=== PATIENT | female | born 1950 | race Caucasian/White ===

== ENCOUNTER 2017-02-18 17:06 | Emergency (ER) | payer MEDICARE ==
[2017-02-18 17:16] VITALS: BP 123/64; PULSE 80; RESP 16; TEMP 98.4; O2SAT 100
--- NOTE | 2017-02-18 17:36 | ED PDOC ---
HPI: Female Pain Time Seen by Provider: 02/18/17 17:19 Chief Complaint (Nursing): Female Genitourinary Chief Complaint (Provider): dysuria History Per: Patient Onset/Duration Of Symptoms: Days (x2) Additional Complaint(s): Yelena Nicholas is a 66 year old female, with a past medical history of hypertension, hyperlipidemia, diabetes, and gastritis, presents to the ED with dysuria, urinary urgency, and urinary frequency x 2 days prior. Patient denies fever, chills, nausea, or vomiting and she denies abdominal and back pain. Patient states has sensation that she needs to urinate but then only urinates a very small amount. PMD: Go Delacruz MD Past Medical History Reviewed: Historical Data, Nursing Documentation, Vital Signs Vital Signs: Last Vital Signs Temp 98.4 F 02/18/17 17:11 Pulse 80 02/18/17 17:11 Resp 16 02/18/17 17:11 BP 123/64 02/18/17 17:11 Pulse Ox 100 02/18/17 17:11 - Medical History PMH: CAD, Diabetes, Gastritis, HTN, Hypercholesterolemia - Surgical History Surgical History: Endoscopy Other surgeries: hysterectomy - Family History Family History: States: No Known Family Hx - Living Arrangements Living Arrangements: With Family - Social History Current smoker - smoking cessation education provided: No Ex-Smoker (has not smoked in the last 12 months): No Alcohol: None Drugs: Denies - Home Medications Home Medications: Ambulatory Orders Medication Instructions Recorded Azithromycin [Zithromax] 1 tab PO DAILY #6 tablet 09/05/15 Promethazine DM [Phenergan DM Oral 5 ml PO Q8 #100 dose 09/05/15 Syrup] Nitrofurantoin Macrocrystals 100 mg PO BID #14 cap 02/18/17 [Macrobid] - Allergies Allergies/Adverse Reactions: Allergies Allergy/AdvReac Type Severity Reaction Status Date / Time No Known Allergies Allergy Verified 02/18/17 17:11 Review of Systems ROS Statement: Except As Marked, All Systems Reviewed And Found Negative Constitutional: Negative for: Fever, Chills, Weakness Cardiovascular: Negative for: Chest Pain Gastrointestinal: Negative for: Nausea, Vomiting, Abdominal Pain Genitourinary Female: Positive for: Dysuria, Frequency, Other (urinary urgency) . Negative for: Incontinence, Hematuria, Vaginal Discharge, Vaginal Bleeding, Pelvic Pain Physical Exam - Reviewed Nursing Documentation Reviewed: Yes Vital Signs Reviewed: Yes - Physical Exam Appears: Positive for: Well, Non-toxic, No Acute Distress Cardiovascular/Chest: Positive for: Regular Rate, Rhythm Respiratory: Positive for: Normal Breath Sounds. Negative for: Respiratory Distress Gastrointestinal/Abdominal: Positive for: Normal Exam, Soft. Negative for: Tenderness, Distended, Guarding, Rebound Back: Positive for: Normal Inspection. Negative for: L CVA Tenderness, R CVA Tenderness, Vertebral Tenderness Neurologic/Psych: Positive for: Alert, Oriented, Gait (steady) - Laboratory Results Urine dip results: Positive for: Leukocyte Esterase (small), Blood (large) - ECG O2 Sat by Pulse Oximetry: 100 (RA) Pulse Ox Interpretation: Normal Medical Decision Making Medical Decision Making: Time: 17:19 Impression: UTI Patient is afebrile, well appearing, non-toxic appearing. Plan: * ED Urine Dipstick (POC) * Urine Culture U dip positive for leuks and blood. Will treat with rx macrobid. Patient was instructed to drink plenty of fluids and take tylenol for pain as needed. Advised PMD follow up in 1-2 days. Scribe Attestation: Documented by Bere Jeronimo, acting as a scribe for Randi Duong PA-C. Provider Scribe Attestation: All medical record entries made by the Scribe were at my direction and personally dictated by me. I have reviewed the chart and agree that the record accurately reflects my personal performance of the history, physical exam, medical decision making, and the department course for this patient. I have also personally directed, reviewed, and agree with the discharge instructions and disposition. Disposition - Clinical Impression Clinical Impression: Urinary tract infection - Patient ED Disposition Is Patient to be Admitted: No Counseled Patient/Family Regarding: Studies Performed, Diagnosis, Need For Followup, Rx Given - Disposition Referrals: Go Delacruz MD [Family Provider] - Disposition: Routine/Home Disposition Time: 18:05 Condition: STABLE Additional Instructions: Drink plenty of water. Tylenol for pain as needed. Take rx meds as directed. Follow up with primary care doctor in 2-3 days. Prescriptions: Nitrofurantoin Macrocrystals [Macrobid] 100 mg PO BID #14 cap Instructions: Urinary Tract Infection in Women (ED) Forms: [employer] (Hebrew) Print Language: PERUVIAN
== END 2017-02-18 18:23 | disposition home or self-care (01) ==
LOC: H.ER 17:06
DX: N39.0 Urinary tract infection, site not specified (principal); E11.9 Type 2 diabetes mellitus without complications; E78.00 Pure hypercholesterolemia, unspecified; I10 Essential (primary) hypertension; I25.10 Atherosclerotic heart disease of native coronary artery without angina pectoris

== ENCOUNTER 2017-05-22 07:36 | Day surgery (SDC) | payer MEDICARE, OTHER ==
[2017-05-22] MEDS ORDERED: Lactated Ringer's 1,000 ML IV ONE (07:57)
[2017-05-22] MEDS ORDERED: Lidocaine 2% Jelly (30 ml) ONE (08:39)
[2017-05-22] MEDS ORDERED: Propofol 10 mg/ml Inj (20 ML) ONE (08:39)
[2017-05-22 09:07] VITALS: TEMP 98
[2017-05-22 09:19] VITALS: BP 114/72; PULSE 74; RESP 12; O2SAT 98
== END 2017-05-22 09:31 | disposition home or self-care (01) ==
LOC: H.ENDO 07:36
PROVIDERS: ATTEND Internal Medicine Gastroenterology
DX: K29.70 Gastritis, unspecified, without bleeding (principal); K44.9 Diaphragmatic hernia without obstruction or gangrene; K25.9 Gastric ulcer, unspecified as acute or chronic, without hemorrhage or perforation; I10 Essential (primary) hypertension; E78.00 Pure hypercholesterolemia, unspecified; K21.9 Gastro-esophageal reflux disease without esophagitis; E11.9 Type 2 diabetes mellitus without complications; R16.0 Hepatomegaly, not elsewhere classified; K59.00 Constipation, unspecified
CPT/HCPCS: 43239; 82948; 88305; 88342; J2704; J7120

== ENCOUNTER 2017-07-21 09:33 | Emergency (ER) | payer MEDICARE, OTHER ==
[2017-07-21 09:42] VITALS: RESP 16; TEMP 97.6; BMI 27.1
[2017-07-21] MEDS ORDERED: Albuterol-Ipratrop 3 mg / 0.5 (3 ml) UD INH STA (10:09)
[2017-07-21] MEDS ORDERED: Promethazine/Cod 6.25mg-10mg/5ml Syr UD PO STA (10:09)
[2017-07-21] MEDS ORDERED: Promethazine/Cod 6.25mg-10mg/5ml Syr UD ONE (10:31)
[2017-07-21] MEDS ORDERED: Albuterol-Ipratrop 3 mg / 0.5 (3 ml) UD ONE (10:31)
--- NOTE | 2017-07-21 10:35 | RAD ---
HISTORY: fever cough chest pain COMPARISON: 09/05/2015 TECHNIQUE: Chest PA and lateral FINDINGS: LUNGS: No active pulmonary disease. Stable minor interstitial change is noted. Trachea is midline. Aorta is stable in size. PLEURA: No significant pleural effusion identified. No pneumothorax apparent. CARDIOVASCULAR: Normal. OSSEOUS STRUCTURES: Unchanged. VISUALIZED UPPER ABDOMEN: Normal. OTHER FINDINGS: None. IMPRESSION: No active disease.
[2017-07-21 10:44] LABS: EOS # 0.1 K/uL (0.0-0.7); EOS % 1.9 % (0.0-4.0); HEMOGLOBIN 13.6 g/dL (12.0-16.0); LYMPH # 1.3 K/uL (1.0-4.3); MEAN CELL VOLUME 86.4 fl (81.0-99.0); MEAN CORPUSCULAR HEMOGLOBIN 28.5 pg (27.0-31.0); MEAN CORPUSCULAR HGB CONC 32.9 g/dL (33.0-37.0); MEAN PLATELET VOLUME 10.3 fl (7.2-11.7); MONO # 0.7 K/uL (0.0-0.8); MONO % 17.8 % (0.0-10.0); NEUT % 47.3 % (50.0-75.0); NRBC % 0.1 % (0.0-0.0); RBC 4.78 Mil/uL (3.80-5.20); RED CELL DISTRIBUTION WIDTH 13.8 % (11.5-14.5); WHITE BLOOD COUNT 4.2 K/uL (4.8-10.8)
[2017-07-21 10:48] LABS: BLOOD UREA NITROGEN 18 mg/dl (7-17); CALCIUM 9.1 mg/dL (8.4-10.2); GFR AFRICAN-AMERICAN > 60; GFR NON-AFRICAN AMERICAN > 60
[2017-07-21] MEDS ORDERED: Potassium Chloride 20 mEq ER Tab PO ONE ×2 (11:17→13:07)
--- NOTE | 2017-07-21 12:24 | ED PDOC ---
HPI: CCC, URI, Sore Throat Time Seen by Provider: 07/21/17 09:45 Chief Complaint (Nursing): Cough, Cold, Congestion Chief Complaint (Provider): Cough, Congestion, Fever, Body Aches History Per: Patient History/Exam Limitations: no limitations Onset/Duration Of Symptoms: Days (x6) Location Of Pain: Throat, Headache Sick Contacts (Context): None Associated Symptoms: denies: Vomiting, Diarrhea Ear Symptoms: Bilateral: None Additional Complaint(s): 66 year old female with a past medical history of hypertension diabetes presents to the ED complaining of cough, congestion, fever, headache and body aches x6 days. The patient states that her cough is dry associated with chest pain and her fever is intermittent. She also reports that she has nasal congestion associated with sore throat. Patient also states that she has chest congestion and at time she has difficulty breathing. Denies vomiting, diarrhea, abdominal pain, back pain, urinary symptoms. PMD: Dr. Marin Past Medical History Reviewed: Historical Data, Nursing Documentation, Vital Signs Vital Signs: Last Vital Signs Temp 97.6 F 07/21/17 09:40 Pulse 84 07/21/17 13:10 Resp 16 07/21/17 13:10 BP 123/60 07/21/17 13:10 Pulse Ox 99 07/21/17 13:10 - Medical History PMH: CAD, CHF, Diabetes, Gastritis, HTN, Hypercholesterolemia - Surgical History Surgical History: Endoscopy Other surgeries: hysterectomy and breast lumpectomy - Family History Family History: States: Unknown Family Hx - Social History Current smoker - smoking cessation education provided: No Ex-Smoker (has not smoked in the last 12 months): No Alcohol: None - Home Medications Home Medications: Ambulatory Orders Medication Instructions Recorded Losartan/Hydrochlorothiazide 1 tab PO DAILY 05/22/17 [Losartan-Hctz 50-12.5 mg Tab] Lovastatin [Altoprev] 1 tab PO DAILY 05/22/17 metFORMIN [glucOPHAGE] 1 tab PO DAILY 05/22/17 Albuterol HFA [Ventolin HFA 90 2 puff IH [id number] #1 inh 07/21/17 mcg/actuation (8 g)] Promethazine/Codeine 5 ml PO Q6 PRN #100 ml 07/21/17 [Phenergan/Codeine Oral Syrup] - Allergies Allergies/Adverse Reactions: Allergies Allergy/AdvReac Type Severity Reaction Status Date / Time aspirin AdvReac VOMITING Verified 07/21/17 09:53 Review of Systems ROS Statement: Except As Marked, All Systems Reviewed And Found Negative Constitutional: Positive for: Fever, Malaise, Other (body aches; fatigue) ENT: Positive for: Nose Congestion, Throat Pain Cardiovascular: Positive for: Chest Pain (w/ coughing), Other (chest congestion) Respiratory: Positive for: Cough Gastrointestinal: Negative for: Vomiting, Abdominal Pain, Diarrhea Musculoskeletal: Negative for: Back Pain Neurological: Positive for: Headache Physical Exam - Reviewed Nursing Documentation Reviewed: Yes Vital Signs Reviewed: Yes - Physical Exam Appears: Positive for: Non-toxic, No Acute Distress Head Exam: Positive for: ATRAUMATIC, NORMAL INSPECTION, NORMOCEPHALIC Skin: Positive for: Normal Color, Warm, Dry. Negative for: Rash Eye Exam: Positive for: Normal appearance, EOMI, PERRL. Negative for: Nystagmus ENT: Positive for: Normal ENT Inspection. Negative for: Nasal Congestion, Pharyngeal Erythema, Tonsillar Exudate, Tonsillar Swelling Neck: Positive for: Normal, Painless ROM, Supple Cardiovascular/Chest: Positive for: Regular Rate, Rhythm, Chest Non Tender. Negative for: Tachycardia Respiratory: Positive for: Normal Breath Sounds. Negative for: Rales, Rhonchi, Wheezing, Respiratory Distress Gastrointestinal/Abdominal: Positive for: Normal Exam, Bowel Sounds, Soft. Negative for: Tenderness, Mass, Guarding, Rebound Back: Positive for: Normal Inspection. Negative for: L CVA Tenderness, R CVA Tenderness Extremity: Positive for: Normal ROM. Negative for: Tenderness, Deformity, Swelling Lymphatic: Positive for: Normal Exam. Negative for: Adenopathy Neurologic/Psych: Positive for: Alert, Oriented, Gait - Laboratory Results Result Diagrams: 07/21/17 10:25 07/21/17 10:25 - ECG O2 Sat by Pulse Oximetry: 100 (RA) Pulse Ox Interpretation: Normal Medical Decision Making Medical Decision Makin Initial Impression 66 y/o female presenting with URI with tonsillitis Differential: Pnuemonia Initial Plan: * BMP * Udip * CBC * NS 1000 ml IV 1000 mls/hr * Toradol 15mg IVP * Zofran 4mg IV * Influenza A B * Reevaluation Documented by Nika Lozano acting as a scribe for Sergio Glaser MD. All medical record entries made by the Scribe were at my direction and personally dictated by me. I have reviewed the chart and agree that the record accurately reflects my personal performance of the history, physical exam, medical decision making, and the department course for this patient. I have also personally directed, reviewed, and agree with the discharge instructions and disposition. Disposition - Clinical Impression Clinical Impression: Bronchitis, URI, acute - Patient ED Disposition Is Patient to be Admitted: No Doctor Will See Patient In The: Office Counseled Patient/Family Regarding: Studies Performed, Diagnosis, Need For Followup - Disposition Referrals: Go Delacruz MD [Staff Provider] - Disposition: Routine/Home Disposition Time: 13:00 Condition: GOOD Additional Instructions: Take tylenol or advil for pain and fever. Follow up with your PCP in 2-3 days. Prescriptions: Albuterol HFA [Ventolin HFA 90 mcg/actuation (8 g)] 2 puff IH [id number] #1 inh Promethazine/Codeine [Phenergan/Codeine Oral Syrup] 5 ml PO Q6 PRN #100 ml PRN Reason: Cough Instructions: Acute Bronchitis (ED)
[2017-07-21 13:17] VITALS: BP 123/60; PULSE 84
--- NOTE | 2017-07-21 18:14 | CARD ---
APPROVED REPORT EKG Measurement Heart [id number] <Conclusion> Normal sinus rhythm ST & T wave abnormality, consider inferior ischemia Abnormal ECG
[2017-07-21 19:10] VITALS: O2SAT 100
== END 2017-07-21 13:10 | disposition home or self-care (01) ==
LOC: H.ER 09:33
DX: J40 Bronchitis, not specified as acute or chronic (principal); I50.9 Heart failure, unspecified; Z79.84 Long term (current) use of oral hypoglycemic drugs; Z90.710 Acquired absence of both cervix and uterus; E11.9 Type 2 diabetes mellitus without complications; E78.00 Pure hypercholesterolemia, unspecified; I11.0 Hypertensive heart disease with heart failure
CPT/HCPCS: 71046; 80048; 85025; 87040; 87070; 87430; 87804; 93005; 94150; 94640; 96374; 99284; J1885

== ENCOUNTER 2018-01-02 15:53 | Emergency (ER) | payer MEDICARE ==
[2018-01-02 15:56] VITALS: BP 120/70; PULSE 82; RESP 16; TEMP 98.2; O2SAT 98; BMI 26.6
--- NOTE | 2018-01-02 16:39 | ED PDOC ---
HPI: Psych/Substance Abuse Time Seen by Provider: 01/02/18 16:17 Chief Complaint (Nursing): Psychiatric Evaluation Chief Complaint (Provider): depression History Per: Patient History/Exam Limitations: no limitations Onset/Duration Of Symptoms: Gradual ( today) Current Symptoms Are (Timing): Still Present Additional Complaint(s): Nurse practitioner visited patient today as part of her insurance's medical checkup. She reports the ACCESS REGISTRAR asked many questions including about her depression. She denies being suicidal but she says the nurse reports that she is. According to triage the ACCESS REGISTRAR reported to the EMS that the patient admitted that she would want to take all her medicines because she was so depressed. The patient denies this. She denies homicidal ideations. She denies hallucinations. Denies drug or alcohol abuse. She offers no complaints. PMD Dr Delacruz ([facility]) Past Medical History Reviewed: Historical Data, Nursing Documentation, Vital Signs Vital Signs: Last Vital Signs Temp 98.2 F 01/02/18 15:56 Pulse 82 01/02/18 15:56 Resp 16 01/02/18 15:56 BP 120/70 01/02/18 15:56 Pulse Ox 98 01/02/18 15:56 - Medical History PMH: CAD, CHF, Diabetes, Gastritis, HTN, Hypercholesterolemia - Surgical History Surgical History: Endoscopy - Family History Family History: States: No Known Family Hx - Social History Current smoker - smoking cessation education provided: No Alcohol: None Drugs: Denies - Home Medications Home Medications: Ambulatory Orders Medication Instructions Recorded Losartan/Hydrochlorothiazide 1 tab PO DAILY 05/22/17 [Losartan-Hctz 50-12.5 mg Tab] Lovastatin [Altoprev] 1 tab PO DAILY 05/22/17 metFORMIN [glucOPHAGE] 1 tab PO DAILY 05/22/17 Albuterol HFA [Ventolin HFA 90 2 puff IH [id number] #1 inh 07/21/17 mcg/actuation (8 g)] Promethazine/Codeine 5 ml PO Q6 PRN #100 ml 07/21/17 [Phenergan/Codeine Oral Syrup] - Allergies Allergies/Adverse Reactions: Allergies Allergy/AdvReac Type Severity Reaction Status Date / Time aspirin AdvReac VOMITING Verified 07/21/17 09:53 Review of Systems ROS Statement: Except As Marked, All Systems Reviewed And Found Negative (and as per HPI) Psych: Positive for: Depression. Negative for: Psychosis, Suicidal ideation Physical Exam - Reviewed Nursing Documentation Reviewed: Yes Vital Signs Reviewed: Yes - Physical Exam Appears: Positive for: Non-toxic, No Acute Distress (but tearful in ER) Head Exam: Positive for: ATRAUMATIC, NORMOCEPHALIC Skin: Positive for: Warm, Dry Eye Exam: Positive for: EOMI, PERRL ENT: Negative for: Pharyngeal Erythema, Tonsillar Exudate Neck: Positive for: Painless ROM, Supple Cardiovascular/Chest: Positive for: Regular Rate, Rhythm, Chest Non Tender. Negative for: Murmur Respiratory: Positive for: Normal Breath Sounds. Negative for: Respiratory Distress Gastrointestinal/Abdominal: Positive for: Soft. Negative for: Tenderness Back: Positive for: Normal Inspection. Negative for: Decreased ROM Extremity: Positive for: Normal ROM. Negative for: Deformity Lymphatic: Negative for: Adenopathy Neurologic/Psych: Positive for: Alert, Oriented (x3), Mood/Affect (depressed and angre). Negative for: Motor/Sensory Deficits, Aphasia, Facial Droop - ECG O2 Sat by Pulse Oximetry: 98 - Progress ED Course And Treament: Evaluated by ARTHUR Arambula who d/w Dr Coates. Stable for dc with follow up. Disposition - Clinical Impression Clinical Impression: Depression - Disposition Disposition: Routine/Home Disposition Time: 17:21 Condition: GOOD Additional Instructions: FOLLOW UP WITH DR. GEORGE DOS SANTOS [address] [place] [address] Instructions: Depression, Adult (DC) Forms: [employer] (Zambian) Print Language: CZECH
[2018-01-02 17:24] LABS: BARBITURATES, UR NEGATIVE (NEGATIVE); BENZODIAZEPINES, UR NEGATIVE (NEGATIVE); OPIATES, UR NEGATIVE (NEGATIVE); PHENCYCLIDINE, UR NEGATIVE (NEGATIVE)
== END 2018-01-02 18:21 | disposition home or self-care (01) ==
LOC: H.ER 15:53
DX: F32.9 Major depressive disorder, single episode, unspecified (principal); E11.9 Type 2 diabetes mellitus without complications; E78.00 Pure hypercholesterolemia, unspecified; I11.0 Hypertensive heart disease with heart failure; I25.10 Atherosclerotic heart disease of native coronary artery without angina pectoris; I50.9 Heart failure, unspecified; Z79.84 Long term (current) use of oral hypoglycemic drugs
CPT/HCPCS: 82948; 99284; G0480

== ENCOUNTER 2018-10-28 11:28 | Emergency (ER) | payer MEDICARE ==
[2018-10-28 11:28] VITALS: BMI 27.1
--- NOTE | 2018-10-28 12:44 | ED PDOC ---
HPI: Headache Time Seen by Provider: 10/28/18 12:12 Chief Complaint (Nursing): Headache Chief Complaint (Provider): Headache History Per: Patient Onset/Duration Of Symptoms: Days (3) Additional Complaint(s): 68 y/o female presents to the ED complaining for right sided facial pain and right sided headache that is associated with a right sided cheek rash since 3 days ago. Patient denies fever or any injury. PMD: NONE PROVIDED Past Medical History Reviewed: Historical Data, Nursing Documentation, Vital Signs Vital Signs: Last Vital Signs Temp 98.9 F 10/28/18 11:54 Pulse 66 10/28/18 11:54 Resp 17 10/28/18 11:54 BP 117/65 10/28/18 11:54 Pulse Ox 97 10/28/18 11:54 - Medical History PMH: Arthritis, CAD, CHF, Colonic Polyps, Depression (MORE THAN 6 YRS AGO), Diabetes, Gastritis, HTN, Hypercholesterolemia Denies: Anxiety, Fractures, Hepatitis, HIV, Chronic Kidney Disease, Seizures, Sexually Transmitted Disease - Surgical History Surgical History: Endoscopy - Family History Family History: States: Unknown Family Hx - Home Medications Home Medications: Ambulatory Orders Medication Instructions Recorded Cholecalciferol [Vitamin D] 1,000 unit PO DAILY 12/18/16 Cyanocobalamin [Vitamin B12 100 100 mcg PO DAILY 12/18/16 mcg Tab] Esomeprazole Magnesium [Nexium] 20 mg PO ONCE PRN 12/18/16 Ibuprofen [Motrin Tab] 800 mg PO ONCE PRN 12/18/16 Losartan/Hydrochlorothiazide 1 tab PO DAILY 12/18/16 [Losartan-Hctz 50-12.5 mg Tab] Psyllium Husk/Aspartame [Metamucil 3.4 gm PO DAILY 12/18/16 Fiber Singles Packet] metFORMIN [glucOPHAGE] 500 mg PO DAILY 12/18/16 Losartan/Hydrochlorothiazide 1 tab PO DAILY 05/22/17 [Losartan-Hctz 50-12.5 mg Tab] Lovastatin [Altoprev] 1 tab PO DAILY 05/22/17 metFORMIN [glucOPHAGE] 1 tab PO DAILY 05/22/17 Albuterol HFA [Ventolin HFA 90 2 puff IH [id number] #1 inh 07/21/17 mcg/actuation (8 g)] Promethazine/Codeine 5 ml PO Q6 PRN #100 ml 07/21/17 [Phenergan/Codeine Oral Syrup] Valacyclovir HCl [Valtrex] 1 gm PO TID #30 tablet 10/28/18 traMADol [Ultram] 50 mg PO Q8 #10 tab 10/28/18 - Allergies Allergies/Adverse Reactions: Allergies Allergy/AdvReac Type Severity Reaction Status Date / Time aspirin AdvReac VOMITING Verified 07/21/17 09:53 Review of Systems ROS Statement: Except As Marked, All Systems Reviewed And Found Negative Constitutional: Negative for: Fever ENT: Positive for: Other (Right sided facial pain, right sided headache. ) Skin: Positive for: Rash (right sided facial) Physical Exam - Reviewed Nursing Documentation Reviewed: Yes Vital Signs Reviewed: Yes - Physical Exam Appears: Positive for: Well, Non-toxic, No Acute Distress Head Exam: Positive for: ATRAUMATIC, NORMAL INSPECTION, NORMOCEPHALIC Skin: Positive for: Normal Color, Warm, Rash (Discreet crusted rash right cheek and under right side nose, with mild erythema. no vesicle.) Eye Exam: Positive for: Normal appearance, EOMI, PERRL, Other (right sided orbital swelling erythema. No ocular involvement. ) ENT: Positive for: Normal ENT Inspection Neck: Positive for: Normal, Painless ROM, Supple Cardiovascular/Chest: Positive for: Regular Rate, Rhythm. Negative for: Murmur Respiratory: Positive for: Normal Breath Sounds. Negative for: Respiratory Distress Gastrointestinal/Abdominal: Positive for: Normal Exam, Soft. Negative for: Tenderness Back: Positive for: Normal Inspection. Negative for: L CVA Tenderness, R CVA Tenderness Extremity: Positive for: Normal ROM Neurological/Psych: Positive for: Awake, Alert, Normal Tone, Oriented (x3). Negative for: Motor/Sensory Deficits - Laboratory Results Result Diagrams: 10/28/18 12:49 10/28/18 12:49 - ECG O2 Sat by Pulse Oximetry: 97 Medical Decision Making Medical Decision Making: Time:1223 Initial Impression: consider herpes zoster Initial Plan: Will obtain CT abdominal, blood work, treat with IV and Acyclovir, while waiting for results. -CT -CMP -CBC -VZV DNA, QL, REAL-TIME PCR -Zovirax 500mg inj Suspect Zoster due to unilateral lesions. Will treat with valtrex to prevent ocular involvement and f/u with PMD - Scribe Attestation: Documented by Tania Myles, acting as a scribe for Dario Vanegas. Provider Scribe Attestation: All medical record entries made by the Scribe were at my direction and personal ly dictated by me. I have reviewed the chart and agree that the record accurately reflects my personal performance of the history, physical exam, medical decision making, and the department course for this patient. I have also personally directed, reviewed, and agree with the discharge instructions and disposition. Disposition - Clinical Impression Clinical Impression: Zoster - Patient ED Disposition Is Patient to be Admitted: No Counseled Patient/Family Regarding: Studies Performed, Diagnosis, Need For Followup, Rx Given - Disposition Referrals: Go Delacruz MD [Staff Provider] - Disposition: Routine/Home Disposition Time: 15:23 Condition: FAIR Prescriptions: traMADol [Ultram] 50 mg PO Q8 #10 tab Valacyclovir HCl [Valtrex] 1 gm PO TID #30 tablet Instructions: Alex Forms: [employer] (Eritrean)
[2018-10-28 13:06] LABS: BASO % 0.8 % (0.0-2.0); EOS # 0.2 K/uL (0.0-0.7); EOS % 3.7 % (0.0-4.0); HEMOGLOBIN 12.8 g/dL (12.0-16.0); LYMPH # 1.8 K/uL (1.0-4.3); LYMPH % 30.7 % (20.0-40.0); MEAN CELL VOLUME 87.2 fl (81.0-99.0); MEAN CORPUSCULAR HEMOGLOBIN 28.5 pg (27.0-31.0); MEAN CORPUSCULAR HGB CONC 32.7 g/dL (33.0-37.0); MONO # 0.6 K/uL (0.0-0.8); MONO % 10.7 % (0.0-10.0); NEUT # 3.2 K/uL (1.8-7.0); NEUT % 54.1 % (50.0-75.0); NRBC % 0.1 % (0.0-0.0); RBC 4.48 Mil/uL (3.80-5.20); RED CELL DISTRIBUTION WIDTH 13.4 % (11.5-14.5); WHITE BLOOD COUNT 5.9 K/uL (4.8-10.8)
[2018-10-28 13:14] LABS: ALB/GLOB RATIO 1.3 (1.0-2.1); ALBUMIN 3.7 g/dL (3.5-5.0); ALT/SGPT 28 U/L (9-52); AST/SGOT 22 U/L (14-36); BLOOD UREA NITROGEN 13 mg/dl (7-17); CALCIUM 8.7 mg/dL (8.4-10.2); GFR NON-AFRICAN AMERICAN > 60
--- NOTE | 2018-10-28 14:14 | CT ---
Date of service: 10/28/2018 PROCEDURE: CT HEAD WITHOUT CONTRAST. HISTORY: r/o bleed COMPARISON: Noncontrast head CT 03/19/2012. TECHNIQUE: Axial computed tomography images were obtained through the head/brain without intravenous contrast. Radiation dose: Total exam DLP = 811.14 mGy-cm. This CT exam was performed using one or more of the following dose reduction techniques: Automated exposure control, adjustment of the mA and/or kV according to patient size, and/or use of iterative reconstruction technique. FINDINGS: HEMORRHAGE: No intracranial hemorrhage. BRAIN: Normal carrington-white matter differentiation and density are appreciated throughout the cerebrum and cerebellum with the brainstem appearing unremarkable as well. There is no mass effect. There is no suspicious extra-axial fluid collection and the midline brain anatomy appears diffusely unremarkable. Limited bilateral basal ganglia calcifications are reiterated. VENTRICLES: Unremarkable. No hydrocephalus. CALVARIUM: No destructive bony lesion or displaced fracture identified including through the skullbase. PARANASAL SINUSES: Unremarkable as visualized. No significant inflammatory changes. MASTOID AIR CELLS: Unremarkable as visualized. No inflammatory changes. OTHER FINDINGS: None. IMPRESSION: Stable unremarkable unenhanced CT of the Head.
[2018-10-28 15:52] VITALS: BP 114/60; PULSE 75; RESP 16; TEMP 98.5; O2SAT 98
[2018-10-30 18:34] LABS: INTERPRETATION PAST INFECTION
== END 2018-10-28 15:25 | disposition home or self-care (01) ==
LOC: H.ER 11:28
DX: B02.9 Zoster without complications (principal); E11.9 Type 2 diabetes mellitus without complications; Z86.59 Personal history of other mental and behavioral disorders; I11.0 Hypertensive heart disease with heart failure; Z79.84 Long term (current) use of oral hypoglycemic drugs; I25.10 Atherosclerotic heart disease of native coronary artery without angina pectoris; I50.9 Heart failure, unspecified; Z79.899 Other long term (current) drug therapy; Z88.6 Allergy status to analgesic agent
CPT/HCPCS: 70450; 80053; 85025; 86790; 96374; 99285; J0133

== ENCOUNTER 2018-11-19 13:23 | Emergency (ER) | payer MEDICARE ==
[2018-11-19 13:24] VITALS: BMI 27.1
[2018-11-19 13:48] VITALS: TEMP 98.2; O2SAT 98
--- NOTE | 2018-11-19 15:33 | ED PDOC ---
Syncope/Near Syncope/Dizziness Time Seen by Provider: 11/19/18 14:41 Chief Complaint (Nursing): Dizziness/Lightheaded Chief Complaint (Provider): Dizziness/Lightheaded History Per: Patient History/Exam Limitations: no limitations Onset/Duration Of Symptoms: Days (x2) Current Symptoms Are (Timing): Still Present Additional Complaint(s): 68 year old female with medical history of diabetes, high cholesterol, and hypertension, presents to the emergency department for an evaluation of dizziness and headache for the past 2 days but worsen today. She reports symptoms became severe, in which, she required assistance from her son with dressing as she was unable to stand or perform her daily routine without the sensation of falling and room spins. She denies similar incidents in the past, vomiting, or chest pain. Otherwise, she reports medicine compliance. PCP: none provided CARDIO: Dr. Go Delacruz [employer] Builder: [id number] Past Medical History Reviewed: Historical Data, Nursing Documentation, Vital Signs Vital Signs: Last Vital Signs Temp 98.2 F 11/19/18 13:45 Pulse 68 11/19/18 13:45 Resp 16 11/19/18 13:45 BP 138/72 11/19/18 13:45 Pulse Ox 98 11/19/18 13:45 Primary Care Provider: JUAN MANUEL DUNN - Medical History PMH: Anxiety, Arthritis, CAD, CHF, Colonic Polyps, Depression (MORE THAN 6 YRS AGO), Diabetes, Gastritis, HTN, Hypercholesterolemia Denies: Fractures, Hepatitis, HIV, Chronic Kidney Disease, Seizures, Sexually Transmitted Disease - Surgical History Surgical History: Endoscopy - Family History Family History: States: Unknown Family Hx - Immunization History Hx Tetanus Toxoid Vaccination: No Hx Influenza Vaccination: No Hx Pneumococcal Vaccination: No - Home Medications Home Medications: Ambulatory Orders Medication Instructions Recorded Cholecalciferol [Vitamin D] 1,000 unit PO DAILY 12/18/16 Cyanocobalamin [Vitamin B12 100 100 mcg PO DAILY 12/18/16 mcg Tab] Losartan/Hydrochlorothiazide 1 tab PO DAILY 12/18/16 [Losartan-Hctz 50-12.5 mg Tab] Psyllium Husk/Aspartame [Metamucil 3.4 gm PO DAILY 12/18/16 Fiber Singles Packet] metFORMIN [glucOPHAGE] 500 mg PO DAILY 12/18/16 Lovastatin [Altoprev] 1 tab PO DAILY 05/22/17 Albuterol HFA [Ventolin HFA 90 2 puff IH [id number] #1 inh 07/21/17 mcg/actuation (8 g)] Valacyclovir HCl [Valtrex] 1 gm PO TID #30 tablet 10/28/18 traMADol [Ultram] 50 mg PO Q8 #10 tab 10/28/18 Meclizine [Meclizine*] 25 mg PO Q6 #30 tab 11/19/18 - Allergies Allergies/Adverse Reactions: Allergies Allergy/AdvReac Type Severity Reaction Status Date / Time aspirin AdvReac VOMITING Verified 11/19/18 13:45 Review of Systems ROS Statement: Except As Marked, All Systems Reviewed And Found Negative Cardiovascular: Negative for: Chest Pain Gastrointestinal: Negative for: Vomiting Neurological: Positive for: Headache, Dizziness Physical Exam - Reviewed Nursing Documentation Reviewed: Yes Vital Signs Reviewed: Yes - Physical Exam Appears: Positive for: No Acute Distress Head Exam: Positive for: ATRAUMATIC, NORMAL INSPECTION, NORMOCEPHALIC Skin: Positive for: Normal Color Eye Exam: Positive for: Normal appearance, EOMI, PERRL ENT: Positive for: Normal ENT Inspection Neck: Positive for: Normal, Supple Cardiovascular/Chest: Positive for: Regular Rate, Rhythm. Negative for: Murmur Respiratory: Positive for: Normal Breath Sounds. Negative for: Respiratory Distress Pulses-Radial (L): 2+ Pulses-Radial (R): 2+ Gastrointestinal/Abdominal: Positive for: Normal Exam, Soft. Negative for: Tend erness Extremity: Positive for: Normal ROM (upper/lower) Neurological/Psych: Positive for: Awake, Alert, Normal Tone - Laboratory Results Result Diagrams: 11/19/18 19:35 11/19/18 18:13 - ECG O2 Sat by Pulse Oximetry: 98 (RA) Pulse Ox Interpretation: Normal Medical Decision Making Medical Decision Making: Time: 1500 Initial Plan: work up for worsening headache and dizziness/vertigo. rule out cardiac vs. neuro process. * CT head * EKG * Labs * Antivert PO * IV fluids * Reglan IVP * Toradol IVP Time: 1520 --EKG: NSR at 67 BMP. Time: 1600 CT Head FINDINGS: HEMORRHAGE: No intracranial hemorrhage. BRAIN: Ramachandran-white matter differentiation is preserved. There is no mass, mass effect or abnormal extra-axial fluid collection. There is no territorial infarction. The midline sagittal structures are normal. VENTRICLES: The ventricles are normal in size, shape and configuration. CALVARIUM There is no calvarial fracture or extracranial soft tissue swelling. PARANASAL SINUSES: Predominantly clear. MASTOID AIR CELLS: Predominantly clear. OTHER FINDINGS: None. IMPRESSION: No acute intracranial abnormality. 1899 On reassessment, patient reports improvement in symptoms Workup is unremarkable. Patient informed to follow up with neurologist, referral given Return precautions discussed with patient and daughter. - Scribe Attestation: Documented by Aubree Mustafa, acting as a scribe for Valerie Chen MD. Provider Scribe Attestation: All medical record entries made by the Scribe were at my direction and personally dictated by me. I have reviewed the chart and agree that the record accurately reflects my personal performance of the history, physical exam, medical decision making, and the department course for this patient. I have also personally directed, reviewed, and agree with the discharge instructions and disposition. Disposition - Clinical Impression Clinical Impression: Vertigo - Patient ED Disposition Is Patient to be Admitted: No - Disposition Referrals: Irena Mast MD [Medical Doctor] - Disposition: Routine/Home Disposition Time: 19:00 Condition: STABLE Prescriptions: Meclizine [Meclizine*] 25 mg PO Q6 #30 tab Instructions: Vertigo (a Type of Dizziness) (DC) Forms: [employer] (Burkinan) Print Language: ANDORRAN
--- NOTE | 2018-11-19 15:59 | CT ---
Date of service: 11/19/2018 PROCEDURE: CT HEAD WITHOUT CONTRAST. HISTORY: Vertigo and worsening [facility] COMPARISON: 10/28/2018. TECHNIQUE: Axial computed tomography images were obtained through the head/brain without intravenous contrast. Radiation dose: Total exam DLP = 842.16 mGy-cm. This CT exam was performed using one or more of the following dose reduction techniques: Automated exposure control, adjustment of the mA and/or kV according to patient size, and/or use of iterative reconstruction technique. FINDINGS: HEMORRHAGE: No intracranial hemorrhage. BRAIN: Ramachandran-white matter differentiation is preserved. There is no mass, mass effect or abnormal extra-axial fluid collection. There is no territorial infarction. The midline sagittal structures are normal. VENTRICLES: The ventricles are normal in size, shape and configuration. CALVARIUM: There is no calvarial fracture or extracranial soft tissue swelling. PARANASAL SINUSES: Predominantly clear. MASTOID AIR CELLS: Predominantly clear. OTHER FINDINGS: None. IMPRESSION: No acute intracranial abnormality.
[2018-11-19 16:56] LABS: SQUAMOUS EPITHIAL 1 /hpf (0-5); URINE BILIRUBIN NEGATIVE (NEGATIVE); URINE BLOOD MODERATE (NEGATIVE); URINE CLARITY CLEAR (Clear); URINE COLOR YELLOW (YELLOW); URINE GLUCOSE (UA) NEG (NEGATIVE); URINE LEUKOCYTE ESTERASE NEG Leu/uL (Negative); URINE PROTEIN NEGATIVE (NEGATIVE); URINE UROBILINOGEN 0.2-1.0 mg/dL (0.2-1.0)
[2018-11-19] MEDS: Sodium Chloride 0.9% 500 ML IV STA (16:56)
[2018-11-19 18:44] LABS: ALB/GLOB RATIO 1.7 (1.0-2.1); ALBUMIN 4.5 g/dL (3.5-5.0); ALT/SGPT 137 U/L (9-52); AST/SGOT 172 U/L (14-36); BLOOD UREA NITROGEN 10 mg/dl (7-17); CALCIUM 8.8 mg/dL (8.4-10.2); GFR NON-AFRICAN AMERICAN > 60
[2018-11-19 19:55] LABS: BASO # 0.1 K/uL (0.0-0.2); BASO % 0.7 % (0.0-2.0); EOS # 0.2 K/uL (0.0-0.7); EOS % 2.5 % (0.0-4.0); HEMOGLOBIN 12.3 g/dL (12.0-16.0); LYMPH % 34.4 % (20.0-40.0); MEAN CELL VOLUME 88.6 fl (81.0-99.0); MEAN CORPUSCULAR HEMOGLOBIN 29.2 pg (27.0-31.0); MEAN PLATELET VOLUME 10.7 fl (7.2-11.7); MONO # 0.7 K/uL (0.0-0.8); MONO % 8.5 % (0.0-10.0); NEUT # 4.7 K/uL (1.8-7.0); NEUT % 53.9 % (50.0-75.0); NRBC % 0.1 % (0.0-0.0); RBC 4.2 Mil/uL (3.80-5.20); RED CELL DISTRIBUTION WIDTH 13.9 % (11.5-14.5); WHITE BLOOD COUNT 8.7 K/uL (4.8-10.8)
[2018-11-19 20:26] VITALS: BP 134/74; PULSE 72; RESP 18
--- NOTE | 2018-11-20 11:34 | CARD ---
APPROVED REPORT Date of service: 11/19/2018 EKG Measurement Heart [id number] <Conclusion> Normal sinus rhythm Normal ECG
== END 2018-11-19 20:24 | disposition home or self-care (01) ==
LOC: H.ER 13:23
DX: R42 Dizziness and giddiness (principal); E11.9 Type 2 diabetes mellitus without complications; E78.00 Pure hypercholesterolemia, unspecified; I11.0 Hypertensive heart disease with heart failure; Z79.84 Long term (current) use of oral hypoglycemic drugs; Z88.6 Allergy status to analgesic agent
CPT/HCPCS: 70450; 80053; 81003; 84484; 85025; 93005; 96374; 96375; 99285; J1885; J2765; J7030